=== PATIENT | male | born 1980 | race Caucasian/White ===

== ENCOUNTER 2019-10-16 04:18 | Observation (INO) | payer MEDICARE, MEDICAID ==
[~2019-10-16] VITALS: Ht 175.3 cm; Wt 137.6 kg
[~2019-10-16 04:18] MED LIST: CELE1CAP4; DEXI60CA2 PO; PRIL20CA; SUCR1TA PO; VICO5TAB; ZOLO50TA; ZOLO50TA PO
[2019-10-16 06:15] VITALS: BP 129/80
[2019-10-16] MEDS ORDERED: FAMO1TAB25 PO (06:34)
[2019-10-16] MEDS ORDERED: ATOR1TAB19 PO (06:36)
[2019-10-16] MEDS ORDERED: FAMO1TAB11 PO (06:36)
--- NOTE | 2019-10-16 08:59 | HPEPDOC ---
General Date of Admission Oct 16, 2019 at 06:07 Date of Service: Oct 16, 2019 Chief Complaint rectal bleed Source: Patient Exam Limitations: No limitations History of Present Illness 39 year old male presents with BRBPR. States went to the bathroom early today morning, had what he thought was a normal bowel movement, noted bright red blood mixed with stool in the toilet bowl and when he wiped himself. States had some mild abdominal pain/cramping, N/V, lightheadedness/dizziness. Decided to go to the [place] ED where he was evaluated. VSS, Hgb/Hct 13/40, another episode there with bright red blood but no bowel movement. GI Dr. Sterling was consulted and patient was subsequently transferred to [facility] for further evaluation. Patient is awake and alert, in no acute distress, no further episodes of bleeding noted here. Home Medications Scheduled Atorvastatin Calcium (Atorvastatin Calcium) 10 Mg Tablet, 10 MG PO QHS, (Reported) Dexlansoprazole (Dexilant) 60 Mg Cap, 60 MG PO QHS, (Reported) Famotidine (Famotidine) 20 Mg Tablet, 20 MG PO QHS, (Reported) Sertraline Hcl (Zoloft) 50 Mg Tab, 50 MG PO QHS, (Reported) Allergies Coded Allergies: metoclopramide (Verified Allergy, Unknown, 10/16/19) Past Medical History Medical History GERD, morbid obesity, HLD, HAILEY (nocturnal CPAP), anxiety Surgical History cholecystectomy Family History Significant Family History: Cancer (father), Diverticulitis (mother/brother) Social History * Smoker: Denies Alcohol: Denies Drugs: denies A-FIB/CHADSVASC A-FIB History Current/History of A-Fib/PAF?: No Current PO Anticoag Therapy: No Review of Systems Constitutional: Reports: Fatigue; Denies: Chills, Fever, Night Sweats Eyes: Denies: Pain, Vision change ENT: Denies: Head Aches, Ear Pain, Dysphagia Skin: Denies: Rash, Lesions, Breakdown Pulmonary: Denies: Dyspnea, Cough Cardiovascular: Denies: Chest Pain, Palpitations, Orthopnea, Paroxysmal Noc. Dyspnea, Lt Headedness Gastrointestinal: Denies: Nausea, Vomiting, Abdominal Pain, Diarrhea Genitourinary: Denies: Dysuria, Frequency, Incontinence, Retention Hematologic: Denies: Bruising, Bleeding Excessively Musculoskeletal: Denies: Neck Pain, Back Pain, Joint Pain, Muscle Pain, Spasms Neurological: Denies: Weakness, Numbness, Change in speech, Confusion Psych: Reports: Mood Normal; Denies: Depression, Memory Issues Physical Examination General Exam: Positive: Alert, No Acute Distress Eye Exam: Positive: PERRLA, Conjunctiva & lids normal, EOMI; Negative: Sclera icteric ENT Exam: Positive: Atraumatic, Mucous membr. moist/pink, Pharynx Normal Neck Exam: Positive: Supple; Negative: JVD, thyromegaly Chest Exam: Positive: Clear to auscultation, Normal air movement Heart Exam: Positive: Rate Normal, Regular Rhythm, Normal S1, Normal S2; Negative: Murmurs, Rubs Telemetry: Positive: No significant arrhythmia Abdomen Exam: Positive: Normal bowel sounds, Soft; Negative: Tenderness, Hepatospenomegaly Extremity Exam: Positive: Normal pulses; Negative: Clubbing, Cyanosis, Edema Skin Exam: Positive: Nl turgor and temperature; Negative: Breakdown, Lesion Neuro Exam: Positive: Normal Gait, Normal Speech, Cranial Nerves 3-12 NL, Reflexes 2+ Psych Exam: Positive: Mental status NL, Mood NL, Oriented x 3 Vital Signs Vital Signs Date Time Temp Pulse Resp B/P (MAP) Pulse Ox O2 Delivery O2 Flow Rate FiO2 10/16/19 06:15 98.1 64 16 129/80 (96) 96 Room Air Assessment/Plan 1. LGIB - admit to med/surg. - IVF NS, clear liquids. - repeat CBC pending, monitor. - transfuse as needed for Hgb < 7. - consult to GI Dr. Sterling. 2. HLD - continue atorvastatin. 3. anxiety/depression - continue sertraline 4. HAILEY - continue nocturnal CPAP. 5. morbid obesity - dietary counselling on weight loss. 6. DVT ppx - SCD's/ROULA stockings. Plan / VTE VTE Prophylaxis Ordered?: Yes OCTAVIO GTZ MD Oct 16, 2019 08:59
[2019-10-16] MEDS: NS 1,000 ML IV SCH ×2 (09:18→17:41)
[2019-10-16 09:45] LABS: ALBUMIN 3.6 GM/DL (3.2-5.2); ALT/SGPT 24 U/L (12-78); BILIRUBIN,TOTAL 0.4 MG/DL (0.2-1.0); BLOOD UREA NITROGEN 10 MG/DL (7-18); CALCIUM LEVEL 8.1 MG/DL (8.5-10.1); CARBON DIOXIDE LEVEL 26 MEQ/L (21-32); CHLORIDE LEVEL 110 MEQ/L (98-107); GLOMERULAR FILTRATION RATE > 60.0 (>60); GLUCOSE, FASTING 93 MG/DL (70-100); POTASSIUM SERUM 3.7 MEQ/L (3.5-5.1); SODIUM LEVEL 142 MEQ/L (136-145); TOTAL PROTEIN 6.9 GM/DL (6.4-8.2)
[2019-10-16 10:27] LABS: HEMATOCRIT 39.2 % (42.0-52.0); HEMOGLOBIN 12.4 g/dl (13.5-17.5); MEAN CORPUSCULAR HEMOGLOBIN 27.3 pg (27.0-33.0); MEAN CORPUSCULAR HGB CONC 31.6 g/dl (32.0-36.5); MEAN CORPUSCULAR VOLUME 86.3 fl (80.0-96.0); PLATELET COUNT, AUTOMATED 203 10^3/uL (150-450); RED BLOOD COUNT 4.54 10^6/uL (4.30-6.10); WHITE BLOOD COUNT 7.1 10^3/uL (4.0-10.0)
[2019-10-16 14:00] VITALS: BP 130/79
[2019-10-16] MEDS ORDERED: GOLYTELY SOLN 4000 ML BTL PO ONE (17:00)
[2019-10-16 22:00] VITALS: BP 115/61
[2019-10-17] MEDS: NS 1,000 ML IV SCH ×2 (01:46→09:27)
[2019-10-17 06:00] VITALS: BP 115/62
[2019-10-17 06:46] LABS: ALBUMIN 3.3 GM/DL (3.2-5.2); ALT/SGPT 21 U/L (12-78); BILIRUBIN,TOTAL 0.5 MG/DL (0.2-1.0); BLOOD UREA NITROGEN 6 MG/DL (7-18); CALCIUM LEVEL 7.9 MG/DL (8.5-10.1); CARBON DIOXIDE LEVEL 25 MEQ/L (21-32); CHLORIDE LEVEL 109 MEQ/L (98-107); CREATININE FOR GFR 0.84 MG/DL (0.70-1.30); GLOMERULAR FILTRATION RATE > 60.0 (>60); GLUCOSE, FASTING 88 MG/DL (70-100); POTASSIUM SERUM 3.6 MEQ/L (3.5-5.1); SODIUM LEVEL 141 MEQ/L (136-145); TOTAL PROTEIN 6.3 GM/DL (6.4-8.2)
[2019-10-17] MEDS ORDERED: CALCIUM CARBONATE 500 MG CHEW U/D PO ONE (10:45)
[2019-10-17] MEDS ORDERED: LIDOCAINE 2% INJ 100 MG/5 ML SDV (FOR ANES.) As Ordered ONE (14:12)
[2019-10-17] MEDS ORDERED: propofoL 200 MG/20 ML VIAL As Ordered ONE ×2 (14:12→14:43)
--- NOTE | 2019-10-17 14:24 | ROOR ---
Patient Name: Kenneth Arias Procedure Date: 10/17/2019 2:12 PM Date of : 1980 Age: 39 Room: [facility] Gender: Male Note Status: Finalized Procedure: Upper GI endoscopy Indications: Heartburn, Failure to respond to medical treatment Providers: Leno Sterling MD Referring MD: 2. Inpatient 2. Inpatient Requesting Provider: Medicines: Monitored Anesthesia Care Complications: No immediate complications. Procedure: Pre-Anesthesia Assessment: - The heart rate, respiratory rate, oxygen saturations, blood pressure, adequacy of pulmonary ventilation, and response to care were monitored throughout the procedure. The Endoscope was introduced through the mouth, and advanced to the second part of duodenum. The upper GI endoscopy was accomplished without difficulty. The patient tolerated the procedure well. Findings: The Z-line was regular and was found 40 cm from the incisors. No other significant abnormalities were identified in a careful examination of the stomach. The exam of the duodenum was otherwise normal. Impression: - Z-line regular, 40 cm from the incisors. - No specimens collected. - The examination was otherwise normal. Recommendation: - Patient has a contact number available for emergencies. The signs and symptoms of potential delayed complications were discussed with the patient. Return to normal activities tomorrow. Written discharge instructions were provided to the patient. - High fiber diet. - [facility]. - Follow an antireflux regimen. - Continue present medications. - Return to referring physician. - The findings and recommendations were discussed with the patient's family. Leno Sterling MD Leno Sterling MD 10/17/2019 2:23:33 PM Electronically signed by Leno Sterling MD Number of Addenda: 0 Note Initiated On: 10/17/2019 2:12 PM Estimated Blood Loss: Estimated blood loss: none.
--- NOTE | 2019-10-17 14:46 | ROOR ---
Patient Name: Kenneth Arias Procedure Date: 10/17/2019 2:10 PM Date of : 1980 Age: 39 Room: [facility] Gender: Male Note Status: Finalized Procedure: Total Colonoscopy to Cecum + Cold Snare Polypectomy + Hemoclip Indications: Rectal bleeding Providers: Leno Sterling MD Referring MD: 2. Inpatient 2. Inpatient Requesting Provider: Medicines: Monitored Anesthesia Care Complications: No immediate complications. Procedure: Pre-Anesthesia Assessment: - The heart rate, respiratory rate, oxygen saturations, blood pressure, adequacy of pulmonary ventilation, and response to care were monitored throughout the procedure. The Colonoscope was introduced through the anus and advanced to the cecum, identified by appendiceal orifice and ileocecal valve. The colonoscopy was performed without difficulty. The patient tolerated the procedure well. The quality of the bowel preparation was excellent. Findings: The perianal and digital rectal examinations were normal. Non-bleeding internal hemorrhoids were found during retroflexion. The hemorrhoids were small and Grade I (internal hemorrhoids that do not prolapse). A small polyp was found at 30 cm proximal to the anus. The polyp was sessile. The polyp was removed with a cold snare. Resection and retrieval were complete. To prevent bleeding after the polypectomy, one hemostatic clip was successfully placed (MR conditional). There was no bleeding at the end of the procedure. The exam was otherwise without abnormality on direct and retroflexion views. Impression: - Non-bleeding internal hemorrhoids. - One small polyp at 30 cm proximal to the anus, removed with a cold snare. Resected and retrieved. Clip (MR conditional) was placed. - The examination was otherwise normal on direct and retroflexion views. - The exam was otherwise normal to the cecum. Recommendation: - Patient has a contact number available for emergencies. The signs and symptoms of potential delayed complications were discussed with the patient. Return to normal activities tomorrow. Written discharge instructions were provided to the patient. - High fiber diet. - Discharge patient to home. - Continue present medications. - Await pathology results. - Repeat colonoscopy for surveillance based on pathology results. - Return to referring physician. - The findings and recommendations were discussed with the patient's family. Leno Sterling MD Leno Sterling MD 10/17/2019 2:45:43 PM Electronically signed by Leno Sterling MD Number of Addenda: 0 Note Initiated On: 10/17/2019 2:10 PM Estimated Blood Loss: Estimated blood loss: none.
[2019-10-17 15:15] VITALS: BP 126/76
--- NOTE | 2019-10-17 15:37 | DS.PDOC ---
Discharge Summary General Date of Admission Oct 16, 2019 at 06:07 Date of Discharge 10/17/19 Discharge Summary PROCEDURES PERFORMED DURING STAY: EGD/colonoscopy ADMITTING DIAGNOSES: 1. LGIB DISCHARGE DIAGNOSES: 1. LGIB COMPLICATIONS/CHIEF COMPLAINT: GIB HISTORY OF PRESENT ILLNESS: 39 year old male presents with BRBPR. States went to the bathroom early today morning, had what he thought was a normal bowel movement, noted bright red blood mixed with stool in the toilet bowl and when he wiped himself. States had some mild abdominal pain/cramping, N/V, lightheadedness/dizziness. Decided to go to the [facility] ED where he was evaluated. VSS, Hgb/Hct 13/40, another episode there with bright red blood but no bowel movement. GI Dr. Sterling was consulted and patient was subsequently transferred to [facility] for further evaluation. Patient is awake and alert, in no acute distress, no further episod es of bleeding noted here. HOSPITAL COURSE: Patient was admitted to the hospital. Seen by GI Dr. Sterling, EGD and colonoscopy were performed. Colonoscopy with non-bleeding hemorrhoids and 30cm small polyp which was removed. EGD was essentially normal. Patient has been cleared for discharge home, high fiber diet, outpatient follow up with PCP. DISCHARGE MEDICATIONS: Please see below. ALLERGIES: Please see below. PHYSICAL EXAMINATION ON DISCHARGE: VITAL SIGNS: Please see below. GENERAL: awake, NAD, alert HEENT: NCAT, anicteric sclera, PERRLA NECK: supple, no JVD, no thyromegaly CARDIOVASCULAR EXAMINATION: NS1S2, regular, no murmurs, rubs RESPIRATORY EXAMINATION: CTA b/l, no wheezes, rales, rhonchi ABDOMINAL EXAMINATION: NT/ND, positive bowel sounds x 4, no organomegaly EXTREMITIES: no cyanosis, clubbing, edema SKIN: warm, no rashes NEUROLOGICAL EXAMINATION: AAO x 3, motor 5/5, sensory grossly intact PSYCHIATRIC EXAMINATION: calm, cooperative, normal mood/affect LABORATORY DATA: Please see below. IMAGING: none PROGNOSIS: good ACTIVITY: as tolerated DIET: high fiber diet DISPOSITION: home DISCHARGE INSTRUCTIONS: 1. please follow up with your PCP within 1-2 weeks of discharge. ITEMS TO FOLLOWUP ON ON OUTPATIENT: 1. none DISCHARGE CONDITION: stable TIME SPENT ON DISCHARGE: Greater than 30 minutes. Vital Signs/I&Os Vital Signs Date Time Temp Pulse Resp B/P (MAP) Pulse Ox O2 Delivery O2 Flow Rate FiO2 10/17/19 15:15 97.8 60 18 126/76 (93) 96 Room Air I&O- Last 24 Hours up to 6 AM 10/17/19 06:00 Intake Total 3175 ml Balance 3175 ml Laboratory Data Labs 24H Laboratory Tests 2 10/17/19 05:26: Anion Gap 7L, Glomerular Filtration Rate > 60.0, Calcium Level 7.9L, Total Bilirubin 0.5, Aspartate Amino Transf (AST/SGOT) 14, Alanine Aminotransferase (ALT/SGPT) 21, Alkaline Phosphatase 72, Total Protein 6.3L, Albumin 3.3, A lbumin/Globulin Ratio 1.10 CBC/BMP Laboratory Tests 10/17/19 05:26 Discharge Medications Scheduled Atorvastatin Calcium (Atorvastatin Calcium) 10 Mg Tablet, 10 MG PO QHS, (Reported) Dexlansoprazole (Dexilant) 60 Mg Cap, 60 MG PO QHS, (Reported) Famotidine (Famotidine) 20 Mg Tablet, 20 MG PO QHS, (Reported) Sertraline Hcl (Zoloft) 50 Mg Tab, 50 MG PO QHS, (Reported) Allergies Coded Allergies: metoclopramide (Verified Allergy, Unknown, 10/16/19) OCTAVIO GTZ MD Oct 17, 2019 15:37
--- NOTE | 2019-10-17 16:27 | CR ---
DATE OF CONSULTATION: 10/16/2019 This is a 39-year-old white male who was transferred down from [facility] for evaluation of bright red blood per rectum. The patient states that he has had at least four or five bouts of passing bright red blood per rectum without complaints of abdominal pain, change of bowel habits, or weight loss. The patient denies any fevers, night sweats, or shaking chills. He does have some mild lower abdominal cramping and discomfort with some nausea, vomiting, and lightheadedness. The patient is being transferred for evaluation for the rectal bleeding by gastroenterology (GI). MEDICATIONS AT HOME: Include atorvastatin, Dexilant, famotidine, and Zoloft. ALLERGIES: REGLAN. PAST MEDICAL HISTORY: Positive for: 1. Reflux. 2. Morbid obesity. 3. Nocturnal continuous positive airway pressure (CPAP). 4. Anxiety. PAST SURGICAL HISTORY: Cholecystectomy. FAMILY HISTORY: Noncontributory to the above problem. SOCIAL HISTORY: Cigarettes, alcohol, drugs negative. REVIEW OF SYSTEMS: 12-point review of systems is noncontributory to the above medical problem. GENERAL: He is a well-developed, slightly obese white male in no acute stress, appears stated age. Chest was clear to auscultation. CARDIOVASCULAR: Examination showed a regular rhythm. No murmurs or gallops. Normal physiological split, S1, S2. ABDOMEN: Soft, nontender. No masses, guarding, rebound, hepatosplenomegaly. Bowel sounds positive. EXTREMITIES: No cyanosis, clubbing, or edema. Jackson's negative. LABORATORY STUGIES: On admission showed a white count of 7100, hemoglobin and hematocrit of 12.4 and 39.3. The patient's chemistry was normal on admission. ANALYSIS: Rectal bleeding of unknown etiology at the present time. The plan will be to set the patient up for a colonoscopy for evaluation of the patient's rectal bleeding. In the past, upper endoscopy was in 2015. PLAN: 1. Follow counts. 2. Colonoscopy to be set up in 24 hours.
== END 2019-10-17 16:14 | disposition home or self-care (01) ==
LOC: ENRESERV 05:24 → M MSPAV 06:07
PROVIDERS: ADMIT Family Medicine; ATTEND Internal Medicine
DX: K92.2 Gastrointestinal hemorrhage, unspecified (principal); K64.0 First degree hemorrhoids; R12 Heartburn; K62.5 Hemorrhage of anus and rectum; K21.9 Gastro-esophageal reflux disease without esophagitis; E66.01 Morbid (severe) obesity due to excess calories; G47.33 Obstructive sleep apnea (adult) (pediatric); F41.9 Anxiety disorder, unspecified; E78.49 Other hyperlipidemia; Z79.899 Other long term (current) drug therapy
CPT/HCPCS: 36415; 43235; 45385; 80053; 85027; 88305; 96360; 96361; G0378

== ENCOUNTER 2020-06-05 01:18 | Emergency (ER) | payer MEDICARE, MEDICAID ==
[~2020-06-05] VITALS: Ht 175.3 cm; Wt 139.5 kg
[~2020-06-05 01:18] MED LIST changes: +ATOR1TAB19 PO; +FAMO1TAB11 PO; +FAMO1TAB25 PO
[2020-06-05 03:09] LABS: BASO # 0.1 10^3/uL (0.0-0.2); BASO % 0.6 % (0.0-1.0); EOS # 0.1 10^3/uL (0.0-0.5); HEMATOCRIT 42.3 % (42.0-52.0); HEMOGLOBIN 13.7 g/dl (13.5-17.5); LYMPH # 2.4 10^3/uL (1.5-5.0); LYMPH % 29.3 % (24.0-44.0); MEAN CORPUSCULAR HEMOGLOBIN 27.3 pg (27.0-33.0); MEAN CORPUSCULAR HGB CONC 32.4 g/dl (32.0-36.5); MEAN CORPUSCULAR VOLUME 84.4 fl (80.0-96.0); MONO # 0.7 10^3/uL (0.0-0.8); MONO % 8.5 % (0.0-5.0); NEUTROPHILS # 4.9 10^3/uL (1.5-8.5); NEUTROPHILS % 60.4 % (36.0-66.0); PLATELET COUNT, AUTOMATED 200 10^3/uL (150-450); RED BLOOD COUNT 5.01 10^6/uL (4.30-6.10); WHITE BLOOD COUNT 8.2 10^3/uL (4.0-10.0)
[2020-06-05 03:20] LABS: INR 1.07; PROTHROMBIN TIME 14.1 SECONDS (11.8-14.0)
[2020-06-05 03:39] LABS: ALBUMIN 3.7 GM/DL (3.2-5.2); ALT/SGPT 27 U/L (12-78); BILIRUBIN,DIRECT 0.2 MG/DL (0.0-0.2); BILIRUBIN,TOTAL 0.6 MG/DL (0.2-1.0); BLOOD UREA NITROGEN 14 MG/DL (7-18); CALCIUM LEVEL 8.6 MG/DL (8.5-10.1); CARBON DIOXIDE LEVEL 25 MEQ/L (21-32); CHLORIDE LEVEL 108 MEQ/L (98-107); CK-MB VALUE MASS < 1.0 NG/ML (<3.6); CPK CREATINE PHOSPHOKINASE 46 U/L (39-308); CREATININE FOR GFR 0.91 MG/DL (0.70-1.30); GLOMERULAR FILTRATION RATE > 60.0 (>60); GLUCOSE, FASTING 101 MG/DL (70-100); LIPASE 101 U/L (73-393); MB/CK RELATIVE INDEX 2.17 (< OR =4); POTASSIUM SERUM 3.8 MEQ/L (3.5-5.1); SODIUM LEVEL 142 MEQ/L (136-145); TOTAL PROTEIN 6.9 GM/DL (6.4-8.2); TROPONIN I < 0.02 NG/ML (< 0.10)
[2020-06-05] MEDS ORDERED: GI COCKTAIL 50ML BTL(HYOSCYAMINE/MAALOX/LIDOCAINE VISCOUS)(1:3:1) PO ONE (03:45)
[2020-06-05] MEDS ORDERED: PANTOPRAZOLE 40MG VIAL (C9113 PER 1) IV ONE (03:45)
[2020-06-05] MEDS ORDERED: CARA1TAB6 PO (05:08)
[2020-06-05 05:32] VITALS: BP 150/82
--- NOTE | 2020-06-13 11:24 | ECGEPIP ---
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
--- NOTE | 2020-07-02 08:12 | REP ---
PORTABLE CHEST X-RAY CLINICAL: Chest pain. COMPARISON: None. FINDINGS: Mediastinum and cardiac silhouette are normal. Lung henning clear. No acute consolidation, effusion, or pneumothorax. Skeletal structures are intact. IMPRESSION: Normal chest x-ray. No acute cardiopulmonary process or focal consolidation. MTDD
== END 2020-06-05 05:49 | disposition home or self-care (01) ==
LOC: M ED 01:18
DX: K21.9 Gastro-esophageal reflux disease without esophagitis (principal); F41.1 Generalized anxiety disorder; Z79.899 Other long term (current) drug therapy; Z88.8 Allergy status to other drugs, medicaments and biological substances
CPT/HCPCS: 71045; 80053; 82248; 82550; 82553; 83690; 84484; 85025; 85610; 93005; 93041; 94760; 96374; 99284; C9113

== ENCOUNTER 2024-12-17 16:22 | Emergency (ER) | payer OTHER, BC ==
[~2024-12-17] VITALS: Ht 175.3 cm; Wt 150.2 kg
[~2024-12-17 16:22] MED LIST changes: +CARA1TAB6 PO; +FAMO10TA50 PO; -FAMO1TAB25 PO
[2024-12-17] MEDS ORDERED: TIZA10TA (16:38)
[2024-12-17] MEDS ORDERED: GABA-1172 (16:38)
[2024-12-17] MEDS: KETOROLAC 30 MG/ML 1ML VIAL IV ONE (18:23)
[2024-12-17] MEDS: methylPREDNISolone 125MG 2ML VIAL IV ONE (18:23)
[2024-12-17] MEDS: diazePAM 10MG/2ML SYRINGE IV ONE (18:23)
[2024-12-17 18:35] VITALS: BP 129/61; TEMP 98.1; O2SAT 96
[2024-12-17] MEDS ORDERED: MEDR4PAK PO (19:21)
[2024-12-17] MEDS ORDERED: TRAM50TA2 PO (19:21)
[2024-12-17] MEDS: traMADol 50 MG TAB PO ONE (19:40)
== END 2024-12-17 19:42 | disposition home or self-care (01) ==
LOC: M ED 16:22
DX: M54.2 Cervicalgia (principal); M54.12 Radiculopathy, cervical region; Z79.899 Other long term (current) drug therapy; Z88.8 Allergy status to other drugs, medicaments and biological substances
CPT/HCPCS: 96374; 96375; 99284; J1885; J2919; J3360

== ENCOUNTER 2025-02-07 21:08 | Emergency (ER) | payer OTHER, BC ==
[~2025-02-07] VITALS: Ht 175.3 cm; Wt 150.6 kg
[~2025-02-07 21:08] MED LIST changes: +GABA-1172; +MEDR4PAK PO; +TIZA10TA; +TRAM50TA2 PO
[2025-02-08] MEDS: LIDOCAINE VISCOUS 2% SOLN 15ML UDC PO ONE (00:16)
[2025-02-08] MEDS: PANTOPRAZOLE 40MG VIAL IV STA (00:16)
[2025-02-08] MEDS: MAALOX 30 ML SUSP *UDC PO ONE (00:16)
[2025-02-08] MEDS ORDERED: ceFAZolin SOD 2 GM in DEXTROSE 5% (D5W) ADV/MINI-BAG 50 ML IV ONE (01:05)
[2025-02-08] MEDS: MORPHINE 2 MG/ML 1ML VIAL IV ONE ×2 (01:21→02:23)
[2025-02-08] MEDS: ONDANSETRON 4MG 2ML VIAL IV ONE (01:21)
[2025-02-08] MEDS: ceFAZolin SODIUM 2 GM in DEXTROSE 5% (D5W) ADV/MINI-BAG 50 ML IV ONE (01:21)
[2025-02-08] MEDS: HYDROMORPHONE HCL 0.5 MG/ 0.5 ML SYRINGE IV PRN (06:20)
[2025-02-08] MEDS: CETACAINE SPRAY 5GM TOP ONE (06:20)
[2025-02-08 08:47] VITALS: BP 148/88; TEMP 97.8; O2SAT 99
== END 2025-02-08 08:37 | disposition home or self-care (01) ==
LOC: M ED 21:08
DX: G89.18 Other acute postprocedural pain (principal); E78.5 Hyperlipidemia, unspecified; F32.A Depression, unspecified; K21.9 Gastro-esophageal reflux disease without esophagitis; G43.909 Migraine, unspecified, not intractable, without status migrainosus; G47.30 Sleep apnea, unspecified; Z79.899 Other long term (current) drug therapy; Z88.8 Allergy status to other drugs, medicaments and biological substances
CPT/HCPCS: 71046; 96374; 96375; 96376; 99285; J0690; J1171; J2405; J2470